=== PATIENT | male | born 2005 | race Caucasian/White ===

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

== ENCOUNTER 2025-06-09 17:09 | Emergency (ER) | payer OTHER | END 2025-06-09 18:16 | disposition home or self-care (01) | LOC: ED 17:09 | DX: R51.9 Headache, unspecified (principal); V48.5XXA Car driver injured in noncollision transport accident in traffic accident, initial encounter; Y93.89 Activity, other specified; Y92.89 Other specified places as the place of occurrence of the external cause; Y99.8 Other external cause status ==